=== PATIENT | female | born 1940 | race Caucasian/White ===

== ENCOUNTER 2017-10-15 19:15 | Emergency (ER) | payer MEDICARE, BC ==
--- NOTE | 2017-10-15 20:14 | EDM.PDOC ---
ED HPI GENERAL MEDICAL PROBLEM - General Chief Complaint: ENT Problem Stated Complaint: nose bleed Time Seen by Provider: 10/15/17 19:20 Source of Information: Reports: Patient History Limitations: Reports: No Limitations - History of Present Illness INITIAL COMMENTS - FREE TEXT/NARRATIVE: Lori is a 77 yo female who presents to the ER today with concerns of a nose bleed. She states she was getting supper ready this evening and felt a nose bleed coming on. Typically she will hold pressure for 5 or so minutes and it will stop. She denies any sinus infections. States she does have a constant runny nose and wonders if she doesn't have some allergy involvement. States she gets a few nose bleeds a year. Admits to history of high blood pressure. Currently is on Lisinopril and HCTZ. Denies any blood thinners. States she usually takes a baby aspirin but hasn't the last week or so as it upsets her stomach. Onset: Today Duration: Constant Location: Reports: Face - Related Data Allergies Allergy/AdvReac Type Severity Reaction Status Date / Time cephalexin [Cephalexin] Allergy Hives Verified 08/31/15 10:28 Home Meds: Home Meds Aspirin [Halfprin] 81 mg PO DAILY 08/23/13 [History] Calcium Carbonate/Vitamin D3 [Calcium 500 + Vit D 200 Tablet] 1 each PO DAILY [History] Cholecalciferol (Vitamin D3) [Vitamin D] 1,000 units PO DAILY 08/23/13 [History] Multivitamin [Daily Multiple Vitamin] 1 tab PO DAILY 08/23/13 [History] Omeprazole 40 mg PO DAILY 08/23/13 [History] Hydrochlorothiazide 25 mg PO DAILY 08/31/15 [History] atorvaSTATin [Lipitor] 20 mg PO BEDTIME 08/31/15 [History] Lisinopril 2.5 mg PO DAILY 10/15/17 [History] Past Medical History HEENT History: Reports: Impaired Vision Cardiovascular History: Reports: High Cholesterol, Hypertension Gastrointestinal History: Reports: Diverticulosis Genitourinary History: Reports: UTI, Recurrent Musculoskeletal History: Reports: Arthritis - Past Surgical History HEENT Surgical History: Reports: Adenoidectomy, Naso-Sinus Surgery, Tonsillectomy Social & Family History - Tobacco Use Smoking Status *Q: Never Smoker ED ROS ENT - Review of Systems Review Of Systems: ROS reveals no pertinent complaints other than HPI. Constitutional: Reports: No Symptoms HEENT: Reports: Nosebleed, Rhinitis. Denies: Nose Pain, Throat Pain, Throat Swelling Respiratory: Reports: No Symptoms ED EXAM, ENT - Physical Exam Exam: See Below Exam Limited By: No Limitations General Appearance: Alert, No Apparent Distress Nose: Active Bleeding. No: Nasal Deformity, Nasal Tenderness, Septal Deformity , Septal Hematoma, Septal Perforation Mouth/Throat: Normal Inspection, Normal Gums, Normal Lips, Normal Teeth Head: Atraumatic, Normocephalic Respiratory/Chest: No Respiratory Distress, Lungs Clear Cardiovascular: Regular Rate, Rhythm, No Murmur ED ENT PROCEDURES - Epistaxis Procedure Indication: Epistaxis Recent anticoagulants/antiplatlets: No Uncontrolled HTN: Yes Recent septal/nasal surgery: No Site of bleeding: Left Nare Clearing of clots: Patient Blew Nose Topical Meds: Phenylephrine Ice pack to area: Yes Chemical cautery: Silver Nitrate Topical Post cautery: Antibiotic Ointment Complications: No Course - Vital Signs Last Recorded V/S: Last Vital Signs Temp 97.5 F 10/15/17 19:56 Pulse 80 10/15/17 19:56 Resp 18 10/15/17 19:56 BP 167/76 H 10/15/17 19:56 Pulse Ox 97 10/15/17 19:56 Departure - Departure Time of Disposition: 20:19 Disposition: Home, Self-Care 01 Condition: Good Clinical Impression: Epistaxis - Discharge Information Instructions: Nosebleed, Adult, [id number] Forms: ED Department Discharge Additional Instructions: 1) May use q-tip and apply triple antibiotic ointment to left nare daily. 2) Hand out on nose bleeds given 3) If nosebleed returns or any concerns at all, advise reevaluation. 4) Encourage to continue taking blood pressure medications daily as directed 5) Recheck in clinic next week with primary provider for blood pressure check. - Problem List & Annotations (1) Epistaxis SNOMED Code(s): 469323017 Code(s): R04.0 - EPISTAXIS Status: Acute - Problem List Review Problem List Initiated/Reviewed/Updated: Yes - Assessment/Plan Plan: Using Afrin nasal spray after clearing clot per patient blowing we were able to find source of bleeding at Kieselbach's plexus to the left nare. Using silver nitrate stick we were able to control and stop the bleeding. Patient has been sitting in ER for last half hour with no residual or new onset of bleeding. Will discharge home at this time with recommended follow up with pcp. Blood pressure recheck prior to discharge was 154/74.
[2017-10-15] MEDS ORDERED: Bacitracin/Neomycin/Polymyxin B Oint 0.9 GM U/D Packet TOP ONE (20:22)
[2017-10-15 20:27] VITALS: BP 153/74
[2017-10-15] MEDS ORDERED: Oxymetazoline 0.05% Nasal Spray 15 ML Bottle NAS ONE (20:40)
== END 2017-10-15 20:33 | disposition home or self-care (01) ==
LOC: CC.ED 19:15
DX: R04.0 Epistaxis (principal); Z79.82 Long term (current) use of aspirin; Z88.1 Allergy status to other antibiotic agents; I10 Essential (primary) hypertension
CPT/HCPCS: 99282

== ENCOUNTER 2017-12-06 10:52 | Emergency (ER) | payer MEDICARE, BC ==
[2017-12-06 11:09] VITALS: BP 165/69
--- NOTE | 2017-12-06 11:52 | EDM.PDOC ---
ED HPI GENERAL MEDICAL PROBLEM - General Chief Complaint: General Stated Complaint: LT SIDE RIBS/SLIPPED IN THE BATHRUB Time Seen by Provider: 12/06/17 11:30 - History of Present Illness INITIAL COMMENTS - FREE TEXT/NARRATIVE: Lori is a 77 year old female who presents to the ED with c/o left sided rib pain following a fall at her home. She reports she was in the shower when she slipped and fell, hitting her left side on the tub. She reports she was able to get up on her own and get dressed. She reports the pain is constant so she presents to the ED. Denies any LOC, SOB, CP. Does not have any other symptoms or complaints. Onset Date: 12/06/17 Onset Time: 10:00 Duration: Constant Location: Reports: Chest Quality: Reports: Ache Left Thoracic Pain Score (Numeric/FACES): 8 - Related Data Allergies Allergy/AdvReac Type Severity Reaction Status Date / Time cephalexin [Cephalexin] Allergy Hives Verified 12/06/17 11:10 Home Meds: Home Meds Aspirin [Halfprin] 81 mg PO DAILY 08/23/13 [History] Calcium Carbonate/Vitamin D3 [Calcium 500 + Vit D 200 Tablet] 1 each PO DAILY [History] Cholecalciferol (Vitamin D3) [Vitamin D] 1,000 units PO DAILY 08/23/13 [History] Multivitamin [Daily Multiple Vitamin] 1 tab PO DAILY 08/23/13 [History] Omeprazole 40 mg PO DAILY 08/23/13 [History] Hydrochlorothiazide 25 mg PO DAILY 08/31/15 [History] atorvaSTATin [Lipitor] 20 mg PO BEDTIME 08/31/15 [History] Lisinopril 2.5 mg PO DAILY 10/15/17 [History] Past Medical History HEENT History: Reports: Impaired Vision Cardiovascular History: Reports: High Cholesterol, Hypertension Respiratory History: Reports: None Gastrointestinal History: Reports: Diverticulosis Genitourinary History: Reports: UTI, Recurrent 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 Musculoskeletal History: Reports: Arthritis Neurological History: Reports: None Psychiatric History: Reports: None Endocrine/Metabolic History: Reports: None Hematologic History: Reports: None Immunologic History: Reports: None Oncologic (Cancer) History: Reports: Lung Dermatologic History: Reports: None - Past Surgical History Head Surgeries/Procedures: Reports: None HEENT Surgical History: Reports: Adenoidectomy, Naso-Sinus Surgery, Tonsillectomy Respiratory Surgical History: Reports: Other (See Below) Other Respiratory Surgeries/Procedures: Top right lung removed Neurological Surgical History: Reports: None Social & Family History - Tobacco Use Smoking Status *Q: Former Smoker Used Tobacco, but Quit: No ED ROS GENERAL - Review of Systems Review Of Systems: ROS reveals no pertinent complaints other than HPI. ED EXAM, GENERAL - Physical Exam Exam: See Below Exam Limited By: No Limitations General Appearance: Alert, WD/WN, No Apparent Distress Head: Atraumatic, Normocephalic Neck: Normal Inspection, Supple, Non-Tender, Full Range of Motion Respiratory/Chest: No Respiratory Distress, Lungs Clear, Normal Breath Sounds, No Accessory Muscle Use, Chest Non-Tender, Other (tenderness to left side with palpation) Cardiovascular: Normal Peripheral Pulses, Regular Rate, Rhythm, No Edema, No Gallop, No JVD, No Murmur, No Rub Course - Vital Signs Last Recorded V/S: Last Vital Signs Temp 98.7 F 12/06/17 11:06 Pulse 79 12/06/17 11:06 Resp 18 12/06/17 11:06 BP 165/69 H 12/06/17 11:06 Pulse Ox 96 12/06/17 11:06 - Re-Assessments/Exams Free Text/Narrative Re-Assessment/Exam: Xrays negative for acute fracture or dislocation. Departure - Departure Time of Disposition: 11:50 Disposition: Home, Self-Care 01 Condition: Good Clinical Impression: Contusion of rib on left side Qualifiers: Encounter type: initial encounter Qualified Code(s): S20.212A - Contusion of left front wall of thorax, initial encounter - Discharge Information *PRESCRIPTION DRUG MONITORING PROGRAM REVIEWED*: Not Applicable *COPY OF PRESCRIPTION DRUG MONITORING REPORT IN PATIENT MARLYS: Not Applicable Instructions: Rib Contusion Forms: ED Department Discharge Additional Instructions: Recommend ice or heat to affected area as needed for comfort Tylenol or Ibuprofen as needed for pain Try to continue deep breathing despite pain to prevent pneumonia May take a couple weeks for pain to subside Activity as tolerated Follow up if symptoms worsen or do not improve
== END 2017-12-06 11:57 | disposition home or self-care (01) ==
LOC: CC.ED 10:52
DX: S20.212A Contusion of left front wall of thorax, initial encounter (principal); I10 Essential (primary) hypertension; E78.00 Pure hypercholesterolemia, unspecified; Z79.899 Other long term (current) drug therapy; Z88.1 Allergy status to other antibiotic agents; W19.XXXA Unspecified fall, initial encounter; Y92.009 Unspecified place in unspecified non-institutional (private) residence as the place of occurrence of the external cause
CPT/HCPCS: 71101-LT; 99283

== ENCOUNTER 2017-12-22 19:40 | Emergency (ER) | payer MEDICARE, BC ==
[2017-12-22 20:08] VITALS: BP 150/71
[2017-12-22] MEDS: Silver Nitrate Applicator Each ONE (20:09)
[2017-12-22] MEDS: Silver Nitrate Applicator Each TOP ONE (20:10)
--- NOTE | 2017-12-22 20:24 | EDM.PDOC ---
ED HPI GENERAL MEDICAL PROBLEM - General Chief Complaint: General Stated Complaint: laceration Time Seen by Provider: 12/22/17 20:10 Source of Information: Reports: Patient History Limitations: Reports: No Limitations - History of Present Illness INITIAL COMMENTS - FREE TEXT/NARRATIVE: Lori is a pleasant 77 year old female who presents to the ED with c/o a laceration to her left second finger. She reports she was peeling cucumbers with her new "sharp" toni and slipped and caught her finger. She reports it happened at 1700, about 3 hours prior to presentation. She reports she was unable to get the bleeding to stop. She has had pressure on it for the last 3 hours. Denies any numbness/tingling. Full ROM. No other complaints. Onset: Today, Sudden Onset Date: 12/22/17 Onset Time: 17:00 Duration: Constant Location: Reports: Upper Extremity, Left Quality: Reports: Ache Associated Symptoms: Reports: No Other Symptoms - Related Data Allergies Allergy/AdvReac Type Severity Reaction Status Date / Time cephalexin [Cephalexin] Allergy Hives Verified 12/22/17 19:55 Home Meds: Home Meds Aspirin [Halfprin] 81 mg PO DAILY 08/23/13 [History] Calcium Carbonate/Vitamin D3 [Calcium 500 + Vit D 200 Tablet] 1 each PO DAILY [History] Cholecalciferol (Vitamin D3) [Vitamin D] 1,000 units PO DAILY 08/23/13 [History] Multivitamin [Daily Multiple Vitamin] 1 tab PO DAILY 08/23/13 [History] Omeprazole 40 mg PO DAILY 08/23/13 [History] Hydrochlorothiazide 25 mg PO DAILY 08/31/15 [History] atorvaSTATin [Lipitor] 20 mg PO BEDTIME 08/31/15 [History] Lisinopril 2.5 mg PO DAILY 10/15/17 [History] Past Medical History HEENT History: Reports: Impaired Vision Cardiovascular History: Reports: High Cholesterol, Hypertension Respiratory History: Reports: None Gastrointestinal History: Reports: Diverticulosis Genitourinary History: Reports: UTI, Recurrent INFECTIOUS DISEASES PHYSICIAN History: Reports: None Musculoskeletal History: Reports: Arthritis Neurological History: Reports: None Psychiatric History: Reports: None Endocrine/Metabolic History: Reports: None Hematologic History: Reports: None Immunologic History: Reports: None Oncologic (Cancer) History: Reports: Lung Dermatologic History: Reports: None - Past Surgical History Head Surgeries/Procedures: Reports: None HEENT Surgical History: Reports: Adenoidectomy, Naso-Sinus Surgery, Tonsillectomy Respiratory Surgical History: Reports: Other (See Below) Other Respiratory Surgeries/Procedures: Top right lung removed Neurological Surgical History: Reports: None Social & Family History - Family History Family Medical History: Noncontributory - Tobacco Use Smoking Status *Q: Never Smoker ED ROS GENERAL - Review of Systems Review Of Systems: ROS reveals no pertinent complaints other than HPI. ED EXAM, GENERAL - Physical Exam Exam: See Below Exam Limited By: No Limitations General Appearance: Alert, WD/WN, No Apparent Distress Peripheral Pulses: 2+: Radial (L) Skin Exam: Other (superficial laceration 1 cm x 0.5 cm to tip of left index fnger, bleeding) Course - Vital Signs Last Recorded V/S: Last Vital Signs Temp 98.2 F 12/22/17 19:56 Pulse 75 12/22/17 19:56 Resp 18 12/22/17 19:56 BP 150/71 H 12/22/17 19:56 Pulse Ox 98 12/22/17 19:56 - Orders/Labs/Meds Meds: Medications Discontinued Medications Generic Name Dose Route Start Last Admin Trade Name Freq PRN Reason Stop Dose Admin Silver Nitrate Confirm 12/22/17 19:56 12/22/17 20:09 Silver Nitrate Administered 12/22/17 19:57 Not Given Dose 1 each .ROUTE .STK-MED ONE Silver Nitrate 2 each 12/22/17 20:09 12/22/17 20:10 Silver Nitrate TOP 12/22/17 20:10 2 each ONETIME ONE Administration - Re-Assessments/Exams Free Text/Narrative Re-Assessment/Exam: 12/22/17 20:05 Silver nitrite used to cauterize area. Laceration is superficial so unable to close. Pressure dressing applied. No additional bleeding. Departure - Departure Time of Disposition: 20:19 Disposition: Home, Self-Care 01 Condition: Good Clinical Impression: Laceration of finger of left hand Qualifiers: Encounter type: initial encounter Finger: index finger Damage to nail status: without damage Foreign body presence: without foreign body Qualified Code(s): S61.211A - Laceration without foreign body of left index finger without damage to nail, initial encounter - Discharge Information *PRESCRIPTION DRUG MONITORING PROGRAM REVIEWED*: Not Applicable *COPY OF PRESCRIPTION DRUG MONITORING REPORT IN PATIENT MARLYS: Not Applicable Instructions: Laceration Care, Adult, [id number] Referrals: Melanie Juares, [employer] [Primary Care Provider] - Additional Instructions: Keep pressure dressing in place for next 24 hours. If saturated, remove dressing carefully and redress with pressure bandage/ dressing after the 24 hour time frame. Neosporin (triple antibiotic ointment) to area twice daily as it heals. Keep covered. Tylenol as needed for pain Follow up as needed
== END 2017-12-22 20:25 | disposition home or self-care (01) ==
LOC: CC.ED 19:40
DX: S61.211A Laceration without foreign body of left index finger without damage to nail, initial encounter (principal); W26.8XXA Contact with other sharp object(s), not elsewhere classified, initial encounter; I10 Essential (primary) hypertension; Z88.1 Allergy status to other antibiotic agents; Z79.82 Long term (current) use of aspirin; Z79.899 Other long term (current) drug therapy
CPT/HCPCS: 17250; 99282; 99283

== ENCOUNTER 2022-04-14 15:00 | Emergency (ER) | payer MEDICARE, BC ==
[2022-04-14 15:32] VITALS: BP 161/46; PULSE 68
[2022-04-14] MEDS ORDERED: Take Home: Amoxicillin/Clavulanate K 875-125 MG Tab, 2 Tab Pack PO ONE ×2 (15:52→16:09)
[2022-04-14] MEDS ORDERED: Amoxicillin/Clavulanate K 875-125 MG Tab PO SCH (17:30)
== END 2022-04-14 16:24 | disposition home or self-care (01) ==
LOC: CC.ED 15:00
DX: H65.91 Unspecified nonsuppurative otitis media, right ear (principal); H72.91 Unspecified perforation of tympanic membrane, right ear; H61.21 Impacted cerumen, right ear; E78.00 Pure hypercholesterolemia, unspecified; I10 Essential (primary) hypertension; M19.90 Unspecified osteoarthritis, unspecified site; Z87.891 Personal history of nicotine dependence; Z88.1 Allergy status to other antibiotic agents; Z79.82 Long term (current) use of aspirin; Z79.899 Other long term (current) drug therapy
CPT/HCPCS: 69210; 99282; 99284; A9270-GY